=== PATIENT | female | born 1990 | race Caucasian/White ===

== ENCOUNTER 2017-06-01 02:35 | Inpatient (IN) | payer OTHER ==
[2017-06-01] MEDS ORDERED: RINGERS SOLUTION,LACTATED 1,000 ML IV ONE (02:39)
[2017-06-01] MEDS ORDERED: PENICILLIN G POTASSIUM 5,000,000 UNIT in DEXTROSE 5%-WATER 100 ML IV ONE (02:39)
[2017-06-01] MEDS ORDERED: RINGERS SOLUTION,LACTATED 1,000 ML IV PRN (02:39)
[2017-06-01] MEDS ORDERED: PENICILLIN G-K 5 MILLION UNIT VIAL ONE (02:46)
[2017-06-01] MEDS ORDERED: MISOPROSTOL 0.2 MG TABLET ONE (02:47)
[2017-06-01] MEDS ORDERED: LIDOCAINE 1% INJ-PF (10 MG/ML) 30 ML SDV ONE (02:47)
[2017-06-01] MEDS ORDERED: OXYTOCIN/NORMAL SALINE 0 UNIT/0 ML RTUINJ ONE (02:47)
[2017-06-01] MEDS ORDERED: OXYTOCIN 10 UNIT/ML VIAL ONE (02:52)
[2017-06-01] MEDS ORDERED: PROMETHAZINE HCL INJ 25 MG/1 ML VIAL IV PRN (03:35)
[2017-06-01] MEDS ORDERED: MEASLES,MUMPS&RUBELLA VACC/PF 0.5 ML VIAL SUBCUT PRN (03:35)
[2017-06-01] MEDS ORDERED: ACETAMINOPHEN WITH CODEINE #3 TABLET PO PRN ×2 (03:35)
[2017-06-01] MEDS ORDERED: GLYCERIN/WITCH HAZEL LEAF 1 EACH MED..PAD TP PRN (03:35)
[2017-06-01] MEDS ORDERED: DIBUCAINE 1% OINTMENT 28 GM TP PRN (03:35)
[2017-06-01] MEDS ORDERED: MAGNESIUM HYDROXIDE SUSP 30 ML UDCUP PO PRN (03:35)
[2017-06-01] MEDS ORDERED: DIPH/PERTUSS(ACELL)/TETANUS VAC/PF 0.5 ML SYR (>=10YO) IM PRN (03:35)
[2017-06-01] MEDS ORDERED: PROMETHAZINE HCL 25 MG TABLET PO PRN (03:35)
[2017-06-01] MEDS ORDERED: ZOLPIDEM TARTRATE 5 MG TABLET PO PRN (03:35)
[2017-06-01] MEDS ORDERED: PSEUDOEPHEDRINE HCL 30 MG TABLET PO PRN (03:35)
[2017-06-01] MEDS ORDERED: ACETAMINOPHEN 650 MG SUPP.RECT PR PRN (03:35)
[2017-06-01] MEDS ORDERED: NA PHOS,M-B/NA PHOS,DI-BA (ADULT) 133 ML ENEMA PR PRN (03:35)
[2017-06-01] MEDS ORDERED: BENZOCAINE/MENTHOL AEROSOL SPRAY 56 ML TOP PRN (03:35)
[2017-06-01] MEDS ORDERED: OXYTOCIN/NORMAL SALINE 20 UNIT/1,000 ML RTUINJ IV PRN (03:35)
[2017-06-01] MEDS ORDERED: DIPHENHYDRAMINE HCL 25 MG CAPSULE PO PRN (03:35)
[2017-06-01] MEDS ORDERED: PROMETHAZINE HCL 25 MG SUPP.RECT PR PRN (03:35)
[2017-06-01 04:02] LABS: ABSOLUTE LYMPHOCYTES (AUTO) 1.3 10^3/uL (0.5-4.7); ABSOLUTE NEUT (AUTO) 11.4 10^3/uL (1.7-8.2); BASOPHILS % (AUTO) 0.1 % (0-2); EOSINOPHILS % (AUTO) 0.2 % (0-6); HEMATOCRIT 34.6 % (36.0-47.0); HEMOGLOBIN 11.8 g/dL (12.0-15.5); HGB HCT DIFFERENCE 0.8; LYMPHOCYTES % (AUTO) 9.6 % (13-45); MEAN CORPUSCULAR HEMOGLOBIN 31.6 pg (27.0-33.4); MEAN CORPUSCULAR VOLUME 93 fl (80-97); MONOCYTES % (AUTO) 7.1 % (3-13); RED BLOOD COUNT 3.72 10^6/uL (3.72-5.28); RED CELL DISTRIBUTION WIDTH 13.9 % (11.5-14.0); WHITE BLOOD COUNT 13.8 10^3/uL (4.0-10.5)
--- NOTE | 2017-06-01 04:02 | Delivery Summary ---
Del Sum A-C Datetime Report Generated by CPN: 06/01/2017 04:02 DELIVERY PERSONNEL DELIVERY PERSONNEL: [id number] Delivery Doctor:: Mali Coulter MD Labor and Delivery Nurse:: Doris Estes RNcampaign specialist Nurse:: Liv Joyner RN Net Applications Developer:: Padmini Bajwa RN Student Observers:: Mariano Grimaldo MS-III Stage Builder/FRONT OFFICE ASSISTANT: Mayte Florez CNA MATERNAL INFORMATION Delivery Anesthesia: Local Medications After Delivery: Other-Please Comment Meds After Delivery Comment: Pitocin 20 units IM Estimated Blood Loss (ml): 200 Maternal Complications: Precipitous Labor (<3hrs) LABOR SUMMARY EDC: 05/29/2017 00:00 No. Babies in Womb: 1 Attempted: No Labor Anesthesia: None LABOR INFORMATION Reason for Induction: Not Applicable Onset of Labor: 06/01/2017 02:45 Complete Dilatation: 06/01/2017 02:51 Oxytocin: N/A Group B Beta Strep: Positive Antibiotics # of Doses: 0 Steroids Given: None Reason Steroids Not Administered: Not Applicable MEMBRANES Membranes Rupture Method: Spontaneous Rupture of Membranes: 06/01/2017 02:51 Length of Rupture (hr): 0.10 Amniotic Fluid Color: Clear Amniotic Fluid Amount: Small Amniotic Fluid Odor: Normal STAGES OF LABOR Stage 1 hr: 0 Stage 1 min: 6 Stage 2 hr: 0 Stage 2 min: 6 Stage 3 hr: 0 Stage 3 min: 6 Total Time in Labor hr: 0 Total Time in Labor min: 18 VAGINAL DELIVERY Episiotomy: None Laceration #1: Vaginal Laceration Extension #1: Second Degree Laceration Repair: Yes Laceration Repair Note: 2-0 chromic figure of 8 x 2 stiches Sponge Count Correct: N/A Sharps Count Correct: N/A CSECTION DELIVERY Primary Indication: N/A Secondary Indication: N/A CSection Incidence: N/A Labor: N/A Elective: N/A CSection Incision: N/A BABY A INFORMATION Delivery Date/Time: 06/01/2017 02:57 Method of Delivery: Vaginal Born in Route : No : N/A Forceps: N/A Vacuum Extraction: N/A Shoulder Dystocia : No PRESENTATION/POSITION BABY A Presentation: Cephalic Cephalic Presentation: N/A Vertex Position: Right Occipital Anterior Breech Presentation: N/A PLACENTA INFORMATION BABY A Placenta Delivery Time : 06/01/2017 03:03 Placenta Method of Delivery: Spontaneous Placenta Status: Delivered SCORES BABY A Heart Rate 1 min: >100 bpm Resp Effort 1 min: Slow, Irregular Reflex Irritability 1 min: Cough or Sneeze or Pulls Away Muscle Tone 1 min: Active Motion Color 1 min: Body [place], Extremities Blue Resuscitation Effort 1 min: Tactile Stimulation SCORE 1 MIN: 8 Heart Rate 5 min: >100 bpm Resp Effort 5 min: Good Cry Reflex Irritability 5 min: Cough or Sneeze or Pulls Away Muscle Tone 5 min: Active Motion Color 5 min: Body [place], Extremities Blue Resuscitation Effort 5 min: Tactile Stimulation SCORE 5 MIN: 9 INFORMATION BABY A Gestational Age at Delivery: 40.3 Gestational Status: Full Term- 39- 40.6 Weeks Outcome : Liveborn Infant Condition : Stable Sex: Male IDENTIFICATION BABY A Infant Verification Date/Time: 06/01/2017 03:10 ID Band Number: [id number] Mother's Name Verified: Yes RN Verifying Infant: S. Lattibeaudeir, RN _ R. Orr, RN WEIGHT/LENGTH BABY A Birthweight (gm): 4160 Weight (lb): 9 Weight (oz): 3 Infant Length (in): 21.00 Length (cm): 53.34 CORD INFORMATION BABY A No. Cord Vessels: 3 Nuchal Cord : Around Neck x1, Loose Cord Blood Taken: Yes-For Eval (Mom's Blood Type - or O+) Infant Suction: Mouth; Nose ASSESSMENT BABY A Complications: Other Complications- Other: Terminal mec Physical Findings at Delivery: Within Normal Limits Infant Respirations: Appears Normal Skin to Skin: Yes Lockstitch Back Maker/ALS Called : No Care By: Yogesh Joyner RN Transferred To: Remains with Mother BABY B INFORMATION : N/A SIGNATURES Signature: with User ID: [email or web address]
--- NOTE | 2017-06-01 05:34 | Admission Physical ---
Datetime Report Generated by CPN: 06/01/2017 05:33 CURRENT ADMISSION Chief Complaint: Uterine Contractions Indication for Induction: Not Applicable Indication for Induction: Term, Intrauterine ; Active Labor Admit Plan: Admit to Unit; Initiate Labor Protocol ALLERGIES Medication Allergies: No Medication Allergies: No Known Allergies (05/28/2015) Latex: No Latex Allergies Food Allergies: No Environmental Allergies: No OBSTETRICAL HISTORY EDC: 05/29/2017 00:00 : 3 Para: 1 Term: 1 : 0 SAB: 1 IAB: 0 Ectopic: 0 Livin Cesareans: 0 VBACs: 0 Multiple Births: 0 Gestational Diabetes: No Rh Sensitization: No Incompetent Cervix: No JOSE: No Infertility: No ART Treatment: No Uterine Anomaly: No IUGR: No Hx Previous C/S: No Macrosomia: No Hx Loss/Stillborn: No PIH: No Hx : No Placenta Previa/Abruption: No Depression/PP Depression: No PTL/PROM: No Post Hemorrhage: No Current Procedures: Ultrasound; NST Obstetrical History Comments: G1-40.1 vaginal baby boy 8lbs 5 oz G2-current SEE RECORDS Alcohol: No Marijuana : No Cocaine: No Other Illicit Drugs: No Cigarettes: Never Smoker. [id number] MEDICAL HISTORY Diabetes: No Blood Transfusion: No Pulmonary Disease (Asthma, TB): No Breast Disease: No Hypertension: No Title I Director Surgery: No Heart Disease: No Hosp/Surgery: No Autoimmune Disorder: No Anesthetic Complications: No Kidney Disease: No Abnormal Pap Smear: No Neuro/Epilepsy: No Psychiatric Disorders: No Other Medical Diseases: No Hepatitis/Liver Disease: No Significant Family History: No Varicosities/Phlebitis: No Trauma/Violence : No Thyroid Dysfunction: No INFECTIOUS HISTORY Gonorrhea: No Genital Herpes: No Chlamydia: No Tuberculosis: No Syphilis: No Hepatitis: No HIV/AIDS Exposure: No Rash or Viral Illness: No HPV: No PHYSICAL EXAM General: Normal HEENT: Normal Neurologic: Normal Thyroid: Normal Heart: Normal Lungs: Normal Breast: Normal Back: Normal Abdomen: Normal Genitourinary Exam: Normal Extremities: Normal DTRs: Normal Pelvic Type: Adequate Vital Signs: Reviewed; Within Normal Limits VAGINAL EXAM Dilatation: 8 Effacement: 100 Station: 1 MEMBRANES Pooling: Positive Membranes: Ruptured Amniotic Fluid Color: Clear FETUS A EGA: 40.3 Monitoring: External US FHR- Baseline: 130 Variability: Moderate 6-25bpm Accelerations: 15X15 Decelerations: None FHR Category: Category I Estimated Weight (gm): 4500 Presentation: Vertex PLANS FOR LABOR AND DELIVERY Labor and Delivery: None Pain Management: None Feeding Preference: Breast Benefit of Breast Feed Discussed: Yes Circumcision: Yes INFORMED CONSENT Signature: with User ID: [email or web address]
[2017-06-01] MEDS: IBUPROFEN 800 MG TABLET PO SCH ×2 (06:58→13:10)
[2017-06-01] MEDS ORDERED: PENICILLIN G POTASSIUM 2,500,000 UNIT in DEXTROSE 5%-WATER 50 ML IV SCH (07:00)
[2017-06-01 08:51] VITALS: BP 103/60
[2017-06-01] MEDS ORDERED: PRENATAL VITAMIN W-O CA NO5/FE FUMARATE/FA CAPSULE PO SCH (10:00)
[2017-06-01] MEDS ORDERED: SENNOSIDES/DOCUSATE 8.6-50 MG 1 EACH TABLET PO SCH (10:00)
[2017-06-01] MEDS ORDERED: DOCUSATE SODIUM 100 MG CAPSULE PO SCH (10:00)
[2017-06-01] MEDS ORDERED: FAMOTIDINE 20 MG TABLET PO SCH (10:00)
[2017-06-01] MEDS ORDERED: FERROUS SULFATE 325 MG TABLET PO SCH (10:00)
--- NOTE | 2017-06-01 10:13 | PDOC DISCHARGE SUMMARY ---
Final Diagnosis Discharge Date: 06/01/17 - Final Diagnosis (1) Normal vaginal delivery Is this a current diagnosis for this admission?: Yes Discharge Data - Discharge Medication Home Medications: Vits96/Iron Fum/Folic [ Tablet] 1 tab PO DAILY 05/28/15 Docusate Sodium [Colace 100 mg Capsule] 100 mg PO BID #60 capsule 06/01/17 Ferrous Sulfate [Feosol 325 mg Tablet] 325 mg PO BID #60 tablet 06/01/17 Ibuprofen [Motrin 800 mg Tablet] 800 mg PO Q8 #60 tablet 06/01/17 Gestational Age: 40.3 Reason(s) for Admission: Onset of Labor, Group B Strep Positive Procedures: NST Intrapartum Procedure(s): Spontaneous Vaginal Delivery Complication(s): Laceration-Perineal Laceration-Degree: 2nd - [place] Data Baby 1 Male at 1 minute: 8 at 5 minutes: 9 Weight: 4160 kg Home with Mother: No Complications: Yes - abodminal distention, vomiting blood - Diagnosis Test Laboratory: Temp Pulse Resp BP Pulse Ox 98.1 F 64 17 103/60 99 06/01/17 08:08 06/01/17 08:08 06/01/17 08:08 06/01/17 08:08 06/01/17 08:08 06/01/17 03:45 RBC 3.72 Hgb 11.8 L Hct 34.6 L - Discharge information/Instructions Discharge Activity: Activity As Tolerated, No Driving, Pelvic Rest, No tub bath Discharge Diet: Regular Disposition: HOME, SELF-CARE Follow up with: [facility] in: 1, Weeks - baby transferred to [facility], pt requesting early d/c
--- NOTE | 2017-06-01 10:15 | PDOC PROGRESS REPORT ---
Subjective-OB Subjective: Post Delivery Day: 0 26 year old. being transferred to [facility], pt desires early discharge now to accompany infant, states pain as well controlled, lochia as stable, voiding without difficulty. Physical Exam (OB) Vital Signs: Temp Pulse Resp BP Pulse Ox 98.1 F 64 17 103/60 99 06/01/17 08:08 06/01/17 08:08 06/01/17 08:08 06/01/17 08:08 06/01/17 08:08 Intake & Output 05/31/17 06/01/17 06/02/17 06:59 06:59 06:59 Baby 1 Male 4160 kg - Lochia Lochia Amount: Small 10-25 ml Lochia Color: Rubra/Red - Abdomen Description: Soft, Round Hernia Present: No Fundal Description: Firm, Midline Fundal Height: u/u - u/2 Objective-Diagnostic Laboratory: 06/01/17 03:45 06/01/17 06/01/17 03:45 03:45 WBC 13.8 H RBC 3.72 Hgb 11.8 L Hct 34.6 L MCV 93 MCH 31.6 MCHC 34.0 RDW 13.9 Plt Count 195 Seg Neutrophils % 83.0 H Lymphocytes % 9.6 L Monocytes % 7.1 Eosinophils % 0.2 Basophils % 0.1 Absolute Neutrophils 11.4 H Absolute Lymphocytes 1.3 Absolute Monocytes 1.0 Absolute Eosinophils 0.0 Absolute Basophils 0.0 Blood Type O POSITIVE Antibody Screen NEGATIVE Assessment and Plan(PN) - Assessment and Plan (1) Normal vaginal delivery Is this a current diagnosis for this admission?: Yes Plan: routine pp care early discharge discussed at length ER precautions. - Time Spent with Patient Time with patient: Less than 15 minutes Critical Time spent with patient: Less than 15 minutes Medications reviewed and adjusted accordingly: Yes - Disposition Anticipated Discharge: Home Within: within 24 hours - 1 w f/u @ [facility]
== END 2017-06-01 13:45 | disposition home or self-care (01) | DRG 775 ==
LOC: LC 02:35 → LR 02:55 → 2S 05:32
PROVIDERS: ADMIT Obstetrics & Gynecology; ATTEND Obstetrics & Gynecology
PROC: 10E0XZZ Delivery of Products of Conception, External Approach (ICD-10-PCS; principal; 2017-06-01)
PROC: 0KQM0ZZ Repair Perineum Muscle, Open Approach (ICD-10-PCS; 2017-06-01)
PROC: 4A1HXCZ Monitoring of Products of Conception, Cardiac Rate, External Approach (ICD-10-PCS; 2017-06-01)
DX: O99.824 Streptococcus B carrier state complicating childbirth (principal); O70.1 Second degree perineal laceration during delivery; O62.3 Precipitate labor; O69.81X0 Labor and delivery complicated by cord around neck, without compression, not applicable or unspecified; O77.0 Labor and delivery complicated by meconium in amniotic fluid; Z3A.40 40 weeks gestation of pregnancy; Z37.0 Single live birth
CPT/HCPCS: 36415; 85025; 86592; 86850; 86900; 86901; J2540; J2590; J3490

== ENCOUNTER 2019-03-31 01:33 | Inpatient (IN) | payer OTHER ==
[2019-03-31] MEDS ORDERED: MISOPROSTOL 0.2 MG TABLET ONE ×2 (02:02→02:04)
[2019-03-31] MEDS ORDERED: LIDOCAINE 1% INJ-PF (10 MG/ML) 30 ML SDV ONE ×2 (02:02→02:04)
[2019-03-31] MEDS ORDERED: PENICILLIN G-K 5 MILLION UNIT VIAL ONE (02:02)
[2019-03-31] MEDS ORDERED: OXYTOCIN/NORMAL SALINE 0 UNIT/0 ML RTUINJ ONE (02:02)
[2019-03-31] MEDS ORDERED: OXYTOCIN 10 UNIT/ML VIAL ONE ×2 (02:02→02:04)
[2019-03-31 02:04] LABS: APPEARANCE,URINE CLEAR; BILIRUBIN,URINE NEGATIVE (NEGATIVE); COLOR,URINE YELLOW; GLUCOSE, URINE NEGATIVE (NEGATIVE); KETONES,URINE NEGATIVE (NEGATIVE); LEUKOCYTE ESTERASE,URINE NEGATIVE (NEGATIVE); NITRITE,URINE NEGATIVE (NEGATIVE); PROTEIN,URINE NEGATIVE (NEGATIVE); URINE SPECIFIC GRAVITY 1.012; UROBILINOGEN,URINE NEGATIVE mg/dL (<2.0)
[2019-03-31] MEDS ORDERED: OXYTOCIN/NORMAL SALINE 20 UNIT/1,000 ML RTUINJ ONE (02:04)
[2019-03-31 02:29] LABS: URINE AMPHETAMINES SCREEN NEGATIVE; URINE BENZODIAZEPINES SCREEN NEGATIVE; URINE COCAINE SCREEN NEGATIVE; URINE MARIJUANA (THC) SCREEN NEGATIVE; URINE METHADONE SCREEN NEGATIVE; URINE PHENCYCLIDINE SCREEN NEGATIVE
[2019-03-31 02:33] LABS: URINE BARBITURATES SCREEN NEGATIVE
[2019-03-31 02:40] LABS: ABSOLUTE LYMPHOCYTES (AUTO) 1.7 10^3/uL (0.5-4.7); ABSOLUTE MONOCYTES (AUTO) 0.7 10^3/uL (0.1-1.4); ABSOLUTE NEUT (AUTO) 6.4 10^3/uL (1.7-8.2); BASOPHILS % (AUTO) 0.3 % (0-2); EOSINOPHILS % (AUTO) 0.5 % (0-6); HEMOGLOBIN 12.3 g/dL (12.0-15.5); LYMPHOCYTES % (AUTO) 19.4 % (13-45); MEAN CORPUSCULAR HEMOGLOBIN 31.6 pg (27.0-33.4); MEAN CORPUSCULAR HGB CONC 34.1 g/dL (32.0-36.0); MEAN CORPUSCULAR VOLUME 93 fl (80-97); MONOCYTES % (AUTO) 8.1 % (3-13); PLATELET COUNT 224 10^3/uL (150-450); RED BLOOD COUNT 3.88 10^6/uL (3.72-5.28); RED CELL DISTRIBUTION WIDTH 13.9 % (11.5-14.0); SEGMENTED NEUTROPHILS % (AUTO) 71.7 % (42-78); TOTAL CELLS COUNTED % (AUTO) 100 %; WHITE BLOOD COUNT 8.9 10^3/uL (4.0-10.5)
[2019-03-31] MEDS ORDERED: OXYTOCIN/NORMAL SALINE 20 UNIT/1,000 ML RTUINJ IV PRN (03:09)
[2019-03-31] MEDS ORDERED: PROMETHAZINE HCL INJ 25 MG/1 ML VIAL IV PRN (03:09)
[2019-03-31] MEDS ORDERED: ZOLPIDEM TARTRATE 5 MG TABLET PO PRN (03:09)
[2019-03-31] MEDS ORDERED: MAGNESIUM HYDROXIDE SUSP 30 ML UDCUP PO PRN (03:09)
[2019-03-31] MEDS ORDERED: PROMETHAZINE HCL 25 MG TABLET PO PRN (03:09)
[2019-03-31] MEDS ORDERED: DIPHENHYDRAMINE HCL 25 MG CAPSULE PO PRN (03:09)
[2019-03-31] MEDS ORDERED: ACETAMINOPHEN 325 MG TABLET PO PRN (03:09)
[2019-03-31] MEDS ORDERED: PROMETHAZINE HCL 25 MG SUPP.RECT PR PRN (03:09)
[2019-03-31] MEDS ORDERED: NA PHOS,M-B/NA PHOS,DI-BA (ADULT) 133 ML ENEMA PR PRN (03:09)
[2019-03-31] MEDS ORDERED: DIBUCAINE 1% OINTMENT 56 GM TP PRN (03:09)
[2019-03-31] MEDS ORDERED: PSEUDOEPHEDRINE HCL 30 MG TABLET PO PRN (03:09)
[2019-03-31] MEDS ORDERED: MEASLES,MUMPS&RUBELLA VACC/PF 0.5 ML VIAL SUBCUT PRN (03:09)
[2019-03-31] MEDS ORDERED: BENZOCAINE/MENTHOL AEROSOL SPRAY 56 ML TOP PRN (03:09)
[2019-03-31] MEDS ORDERED: DIPH/PERTUSS(ACELL)/TETANUS VAC/PF 0.5 ML SYR (>=10YO) IM PRN (03:09)
[2019-03-31] MEDS ORDERED: GLYCERIN/WITCH HAZEL LEAF 1 EACH MED..WIPE TP PRN (03:09)
[2019-03-31] MEDS ORDERED: ACETAMINOPHEN WITH CODEINE #3 TABLET PO PRN ×2 (03:09)
--- NOTE | 2019-03-31 04:06 | Warning Signs in Babies ---
VOD Warning Signs Datetime Report Generated by [facility]: 03/31/2019 04:05 VOD#608 -Warning Signs in Babies: Viewed with Parent(s)/Family (03/31/2019 03:55:Geremias Philippe RN)
--- NOTE | 2019-03-31 04:12 | Admission Physical ---
Datetime Report Generated by CPN: 03/31/2019 04:12 CURRENT ADMISSION Chief Complaint: Uterine Contractions Indication for Induction: Not Applicable Admit Impression : Term, Intrauterine Admit Plan: Admit to Unit; Initiate Labor Protocol ALLERGIES Medication Allergies: No Medication Allergies: No Known Allergies (03/31/2019) Latex: No Latex Allergies Food Allergies: none Environmental Allergies: none OBSTETRICAL HISTORY EDC: 03/20/2019 00:00 : 4 Para: 2 Gestational Diabetes: No Rh Sensitization: No Incompetent Cervix: No JOSE: No Infertility: No ART Treatment: No Uterine Anomaly: No IUGR: No Hx Previous C/S: No Macrosomia: No Hx Loss/Stillborn: No PIH: No Hx : No Placenta Previa/Abruption: No Depression/PP Depression: No PTL/PROM: No Post Hemorrhage: No Obstetrical History Comments: 2012 G2 G3 G4- current SEE RECORDS Alcohol: No Marijuana : No Cocaine: No Other Illicit Drugs: No Cigarettes: Never Smoker. [id number] MEDICAL HISTORY Diabetes: No Blood Transfusion: No Pulmonary Disease (Asthma, TB): No Breast Disease: No Hypertension: No Tray Service Worker Surgery: No Heart Disease: No Hosp/Surgery: No Autoimmune Disorder: No Anesthetic Complications: No Kidney Disease: No Abnormal Pap Smear: No Neuro/Epilepsy: No Psychiatric Disorders: No Other Medical Diseases: No Hepatitis/Liver Disease: No Significant Family History: No Varicosities/Phlebitis: No Trauma/Violence : No Thyroid Dysfunction: No INFECTIOUS HISTORY Gonorrhea: No Genital Herpes: No Chlamydia: No Tuberculosis: No Syphilis: No Hepatitis: No HIV/AIDS Exposure: No Rash or Viral Illness: No HPV: No PHYSICAL EXAM General: Normal HEENT: Normal Neurologic: Normal Thyroid: Deferred Heart: Normal Lungs: Normal Breast: Deferred Back: Normal Abdomen: Normal Genitourinary Exam: Normal Extremities: Normal DTRs: Normal Pelvic Type: Adequate Vital Signs: Reviewed VAGINAL EXAM Dilatation: 4 Effacement: 80 Station: -2 Contraction Comments: q 2-3 MEMBRANES Membranes: Intact FETUS A EGA: 41.4 Monitoring: External US FHR- Baseline: 125 Variability: Moderate 6-25bpm Accelerations: 15X15 Decelerations: None FHR Category: Category I Presentation: Vertex Admit Comment: 28yo at 41.4ega presents for active labor. GBS positive - PCN ordered for prophy. History of G3 (05/2017) baby abd distension, vomiting blood and GBS pos and transferred to [facility]. Will make nursery aware. Suspect patient will not be able to get 2 doses of abx. Anticiapte . PLANS FOR LABOR AND DELIVERY Labor and Delivery: None Pain Management: None Feeding Preference: Breast Benefit of Breast Feed Discussed: Yes Circumcision: Yes INFORMED CONSENT Informed Consent Obtained: Vaginal Delivery; Risks, Benefits and Alternatives Discussed Signature: with User ID: [email or web address]
[2019-03-31] MEDS: IBUPROFEN 800 MG TABLET PO SCH ×3 (07:01→22:00)
--- NOTE | 2019-03-31 09:00 | Delivery Summary ---
Del Sum A-C Datetime Report Generated by CPN: 03/31/2019 08:59 DELIVERY PERSONNEL DELIVERY PERSONNEL: [id number] Delivery Doctor:: Luisa Kwan MD Labor and Delivery Nurse:: Geremias Philippe RNhotel administrative assistant Nurse:: Greta Duarte RN Nursery Nurse:: Beatris Barcenas RN MSN Nursery Nurse:: Annalisa Brown RN Residential Mental Health Worker/MAINTENANCE OPERATOR: Millicent Joshi, ST MATERNAL INFORMATION Delivery Anesthesia: None Medications After Delivery: Pitocin Bolus-Please Comment; Pitocin Drip 20 Units/1000ml NSS Meds After Delivery Comment: Pitocin 20 units in 1000 mL NS bolusing Estimated Blood Loss (ml): 50 Delivery QBL: 50 Delivery QBL Comment: 50 Maternal Complications: Precipitous Labor (<3hrs) Provider Comments: VMI delivered in [place] presentation with compound right hand with hand in front of nose and mouth. No nuchal cord. SHoulders and body delivered without difficulty. Cord doubly clamped and cut and infant to maternal abddomen for NRP. Placenta delivered intact spontaneously. 1st degree perineal laceration repaired with good hemostasis. FF at U. AR[facility] at delivery of baby. Mother and baby stable upon provider leaving the room LABOR SUMMARY EDC: 03/20/2019 00:00 No. Babies in Womb: 1 Attempted: No Labor Anesthesia: None LABOR INFORMATION Reason for Induction: Not Applicable Onset of Labor: 03/31/2019 01:54 Complete Dilatation: 03/31/2019 03:16 Oxytocin: N/A Group B Beta Strep: Positive Antibiotics # of Doses: 1 Antibiotics Time of Last Dose: 0159 Name of Antibiotic Given: PCN Steroids Given: None Reason Steroids Not Administered: Not Applicable MEMBRANES Membranes Rupture Method: Artificial Rupture of Membranes: 03/31/2019 03:22 Length of Rupture (hr): 0.02 Amniotic Fluid Color: Clear Amniotic Fluid Amount: Small Amniotic Fluid Odor: Normal STAGES OF LABOR Stage 1 hr: 1 Stage 1 min: 22 Stage 2 hr: 0 Stage 2 min: 7 Stage 3 hr: 0 Stage 3 min: 5 Total Time in Labor hr: 1 Total Time in Labor min: 34 VAGINAL DELIVERY Episiotomy: None Laceration #1: Perineal Laceration Extension #1: First Degree Other Laceration: first degree midline Laceration Repair: Yes Laceration Repair Note: first degree midline laceration repaired. Good hemostasis Sponge Count Correct: Yes Sharps Count Correct: Yes CSECTION DELIVERY Primary Indication: N/A Secondary Indication: N/A CSection Incidence: N/A Labor: N/A Elective: N/A CSection Incision: N/A BABY A INFORMATION Infant Delivery Date/Time: 03/31/2019 03:23 Method of Delivery: Vaginal Method of Delivery: Vaginal Born in Route : No : N/A Forceps: N/A Vacuum Extraction: N/A Vacuum Extraction: N/A Shoulder Dystocia : No PRESENTATION/POSITION BABY A Presentation: Cephalic Cephalic Presentation: Vertex Vertex Position: Right Occipital Anterior, Right Compound Hand Breech Presentation: N/A PLACENTA INFORMATION BABY A Placenta Delivery Time : 03/31/2019 03:28 Placenta Method of Delivery: Spontaneous Placenta Method of Delivery: Spontaneous Placenta Status: Delivered SCORES BABY A Heart Rate 1 min: >100 bpm Resp Effort 1 min: Good Cry Reflex Irritability 1 min: Cough or Sneeze or Pulls Away Muscle Tone 1 min: Active Motion Color 1 min: Blue/Pale Resuscitation Effort 1 min: Tactile Stimulation SCORE 1 MIN: 8 Heart Rate 5 min: >100 bpm Resp Effort 5 min: Good Cry Reflex Irritability 5 min: Cough or Sneeze or Pulls Away Muscle Tone 5 min: Active Motion Color 5 min: Body [place], Extremities Blue Resuscitation Effort 5 min: Tactile Stimulation SCORE 5 MIN: 9 INFORMATION BABY A Gestational Age at Delivery: 41.4 Gestational Status: Late Term- 41- 41.6 Weeks Infant Outcome : Liveborn Infant Condition : Stable Infant Sex: Male Sex: Male IDENTIFICATION BABY A Verification Date/Time: 03/31/2019 03:38 ID Band Number: [id number] Mother's Name Verified: Yes RN Verifying Infant: Ba Felicia, RN and KJc Mina, RN WEIGHT/LENGTH BABY A Birthweight (gm): 3868 Weight (lb): 8 Weight (oz): 8 Length (in): 21.25 Length (cm): 53.98 CORD INFORMATION BABY A No. Cord Vessels: 3 Nuchal Cord : N/A Cord Blood Taken: Yes-For Eval (Mom's Blood Type - or O+) Infant Suction: None ASSESSMENT BABY A Infant Complications: None Physical Findings at Delivery: Within Normal Limits Respirations: Appears Normal Skin to Skin: Yes Skin to Skin Time (min): 60 Motor Overhauler/ALS Called : No Care By: Yogesh Barcenas RN Transferred To: Remains with Mother BABY B INFORMATION : N/A SIGNATURES Signature: with User ID: [email or web address]
[2019-03-31] MEDS: PRENATAL VITAMIN W DHA CAPSULE PO SCH (11:30)
[2019-03-31] MEDS: FAMOTIDINE 20 MG TABLET PO SCH ×2 (11:30→22:00)
[2019-03-31] MEDS: DOCUSATE SODIUM 100 MG CAPSULE PO SCH ×2 (11:30→18:40)
[2019-03-31] MEDS: SENNOSIDES/DOCUSATE 8.6-50 MG 1 EACH TABLET PO SCH (11:30)
[2019-03-31] MEDS: FERROUS SULFATE 325 MG TABLET PO SCH ×2 (11:30→18:40)
[2019-04-01] MEDS: IBUPROFEN 800 MG TABLET PO SCH ×3 (06:36→21:25)
[2019-04-01 06:39] LABS: HEMATOCRIT 38.5 % (36.0-47.0); HEMOGLOBIN 13.1 g/dL (12.0-15.5); MEAN CORPUSCULAR HEMOGLOBIN 31.8 pg (27.0-33.4); MEAN CORPUSCULAR VOLUME 94 fl (80-97); PLATELET COUNT 205 10^3/uL (150-450); RED BLOOD COUNT 4.12 10^6/uL (3.72-5.28); RED CELL DISTRIBUTION WIDTH 13.8 % (11.5-14.0); WHITE BLOOD COUNT 9.8 10^3/uL (4.0-10.5)
[2019-04-01] MEDS: FERROUS SULFATE 325 MG TABLET PO SCH ×2 (10:12→17:48)
[2019-04-01] MEDS: PRENATAL VITAMIN W DHA CAPSULE PO SCH (10:12)
[2019-04-01] MEDS: DOCUSATE SODIUM 100 MG CAPSULE PO SCH ×2 (10:12→17:48)
[2019-04-01] MEDS: SENNOSIDES/DOCUSATE 8.6-50 MG 1 EACH TABLET PO SCH (10:14)
[2019-04-01] MEDS: FAMOTIDINE 20 MG TABLET PO SCH ×2 (10:14→21:26)
--- NOTE | 2019-04-01 17:08 | PDOC PROGRESS REPORT ---
Subjective-OB Progress Note for:: 04/01/19 - late entry 1100 Subjective: reports bleeding slowing, pain controlled with current meds, denies needs. Physical Exam (OB) Vital Signs: Temp Pulse Resp BP Pulse Ox 97.5 F 75 16 101/66 100 04/01/19 08:00 04/01/19 08:00 04/01/19 08:00 04/01/19 08:00 04/01/19 08:00 Intake & Output 03/31/19 04/01/19 04/02/19 06:59 06:59 06:59 Intake Total 150 Balance 150 Weight 93.3 kg - Abdomen Description: Soft Hernia Present: No Fundal Description: Firm, Midline Fundal Height: u/u - u/2 - Abdominal Distension: No distension Tenderness: Nontender - Extremities Lower extremities: Ross's sign - neg Calf: Normal, Nontender Objective-Diagnostic Laboratory: 04/01/19 06:13 04/01/19 06:13 WBC 9.8 RBC 4.12 Hgb 13.1 Hct 38.5 MCV 94 MCH 31.8 MCHC 34.0 RDW 13.8 Plt Count 205 Assessment and Plan(PN) - Assessment and Plan (1) Obstetrical laceration, first degree Is this a current diagnosis for this admission?: Yes (2) Precipitate labor, with delivery Is this a current diagnosis for this admission?: Yes (3) Vaginal delivery Is this a current diagnosis for this admission?: Yes - Time Spent with Patient Time with patient: Less than 15 minutes Medications reviewed and adjusted accordingly: Yes - Disposition Anticipated Discharge: Home Within: within 24 hours
[2019-04-02] MEDS: IBUPROFEN 800 MG TABLET PO SCH (06:07)
[2019-04-02 09:40] VITALS: BP 101/66
[2019-04-02] MEDS: PRENATAL VITAMIN W DHA CAPSULE PO SCH (10:10)
--- NOTE | 2019-04-02 10:10 | PDOC DISCHARGE SUMMARY ---
Final Diagnosis Discharge Date: 04/02/19 - Final Diagnosis (1) Obstetrical laceration, first degree Is this a current diagnosis for this admission?: Yes (2) Precipitate labor, with delivery Is this a current diagnosis for this admission?: Yes (3) Vaginal delivery Is this a current diagnosis for this admission?: Yes Discharge Data - Discharge Medication Prescriptions: Ibuprofen [Motrin 800 mg Tablet] 800 mg PO Q8HP PRN #60 tablet PRN Reason: Home Medications: No.137/Iron/Folic Acd [ Vitamin Tablet] 1 tab PO DAILY 05/28/15 Ibuprofen [Motrin 800 mg Tablet] 800 mg PO Q8HP PRN #60 tablet 04/02/19 Reason(s) for Admission: Onset of Labor Procedures: NST Intrapartum Procedure(s): Spontaneous Vaginal Delivery Complication(s): Laceration-Vaginal Laceration-Degree: 1st - Diagnosis Test Laboratory: Temp Pulse Resp BP Pulse Ox 98.1 F 72 13 101/66 99 04/02/19 09:40 04/02/19 09:40 04/02/19 09:40 04/02/19 09:40 04/02/19 09:40 03/31/19 03/31/19 04/01/19 01:50 02:19 06:13 RBC 3.88 4.12 Hgb 12.3 13.1 Hct 36.0 38.5 Urine Opiates Screen NEGATIVE - Discharge information/Instructions Discharge Activity: Balance Activity w/Rest, Pelvic Rest Discharge Diet: Regular Disposition: HOME, SELF-CARE Follow up with: [facility] in: 4, Weeks
[2019-04-02] MEDS: FERROUS SULFATE 325 MG TABLET PO SCH (10:11)
[2019-04-02] MEDS: DOCUSATE SODIUM 100 MG CAPSULE PO SCH (10:11)
[2019-04-02] MEDS: FAMOTIDINE 20 MG TABLET PO SCH (10:12)
[2019-04-02] MEDS: SENNOSIDES/DOCUSATE 8.6-50 MG 1 EACH TABLET PO SCH (10:12)
== END 2019-04-02 13:30 | disposition home or self-care (01) | DRG 807 ==
LOC: LC 01:33 → LR 02:08 → 2S 05:58
PROVIDERS: ADMIT Student in an Organized Health Care Education/Training Program; ATTEND Student in an Organized Health Care Education/Training Program
PROC: 10E0XZZ Delivery of Products of Conception, External Approach (ICD-10-PCS; principal; 2019-03-31)
PROC: 0HQ9XZZ Repair Perineum Skin, External Approach (ICD-10-PCS; 2019-03-31)
PROC: 10907ZC Drainage of Amniotic Fluid, Therapeutic from Products of Conception, Via Natural or Artificial Opening (ICD-10-PCS; 2019-03-31)
PROC: 4A1HX4Z Monitoring of Products of Conception, Cardiac Electrical Activity, External Approach (ICD-10-PCS; 2019-03-31)
DX: O70.0 First degree perineal laceration during delivery (principal); Z37.0 Single live birth; O99.820 Streptococcus B carrier state complicating pregnancy; O32.6XX0 Maternal care for compound presentation, not applicable or unspecified; O62.3 Precipitate labor; Z3A.41 41 weeks gestation of pregnancy
CPT/HCPCS: 36415; 80307; 81005; 85025; 85027; 86592; 86850; 86900; 86901; J2540; J2590; J3490